=== PATIENT | male | born 1965 | race Hispanic/Latino ===

== ENCOUNTER 2016-10-01 21:54 | Inpatient (IN) ==
[2016-10-01] MEDS ORDERED: OFIRMEV 1000 MG/ISOTONIC SOLN 1,000 MG/100 ML BOTTLE IV ONE (22:48)
[2016-10-01] MEDS ORDERED: NS 1,000 ML IV ONE (22:49)
[2016-10-01 23:34] LABS: BASO% 0.2 % (0.0-0.8); EOS# 0.05 X1000 (0.0-0.7); HEMATOCRIT 44.9 % (42.0-52.0); HEMOGLOBIN 16.2 g/dL (14.0-18.0); LYMPH# 0.68 X1000 (1.2-3.4); LYMPH% 14.3 % (20.5-51.1); MANUAL DIFF NEEDED? NO; MCH 32.9 PG (27-31); MCHC 36.1 g/dL (33-37); MCV 91.3 FL (81-99); MONO# 0.17 X1000 (0.11-0.59); MONO% 3.6 % (1.7-9.3); MPV 10.7 FL (7.4-10.4); NEUT% 80.9 % (42.2-75.2); PLT 90 X1000 (130-400); RBC 4.92 XMIL (4.7-6.1)
--- NOTE | 2016-10-01 23:35 | Diag Imaging Result Doc PS360 ---
EXAM: ABDOMEN/PELVIS W/O CONTRAST HISTORY: diarrhea, T103 TECHNIQUE: CT abdomen and pelvis without contrast COMPARISON: None. FINDINGS: No calcified gallstones or adjacent inflammation. Normal noncontrasted liver, spleen, and pancreas. Normal adrenal glands. No renal stones. No hydronephrosis. Normal aorta. Normal appendix. No abscess. Mild fluid distended loops of small bowel and distal colon. No free air. The urinary bladder is only mildly distended. The prostate is not enlarged. There is mild to moderate spinal stenosis at L3-4 and L4-5. IMPRESSION: 1.Mild fluid distended loops of small bowel and distal colon believe to be secondary to ileus. 2.No renal stones or hydronephrosis 3.Spinal stenosis at L3-4 and L4-5. Electronically signed by Jason Garland 10/01/2016 11:32 PM
--- NOTE | 2016-10-01 23:36 | Diag Imaging Result Doc PS360 ---
EXAM: CHEST-2 VIEWS HISTORY: fever TECHNIQUE: COMPARISON: 02/17/2015 FINDINGS: The lungs are well expanded. The heart is not enlarged. The vessels are not distended. There are no infiltrates. No pleural effusions. IMPRESSION: No pneumonia. Electronically signed by Jason Garland 10/01/2016 11:34 PM
[2016-10-01 23:44] LABS: INR 1.18; PROTIME 12.5 Seconds (9.2-11.7); PTT 32.7 Seconds (22.0-36.0)
[2016-10-01 23:53] LABS: ALBUMIN 4.2 g/dL (3.5-5.0); CALCIUM 8.5 mg/dL (8.8-10.2); POTASSIUM 3.7 mmol/L (3.5-5.1); TOTAL BILIRUBIN 1.06 mg/dL (0.20-1.00); TOTAL PROTEIN 7.8 g/dL (6.3-8.3)
[2016-10-02] MEDS ORDERED: NS 1,000 ML IV ONE ×2 (00:49→03:10)
[2016-10-02] MEDS ORDERED: TORADOL IV ONE (03:09)
[2016-10-02] MEDS ORDERED: VANCOMYCIN 1 GM/NS 1 GM/250 ML IVPB IV ONE (04:33)
[2016-10-02] MEDS ORDERED: ZOSYN 3.375 GM/NS 3.375 GM/50 ML IVPB IV ONE (04:33)
--- NOTE | 2016-10-02 04:33 | PROVIDER DOCUMENTATION ---
This chart was entered by Koki Fernández Scribe, acting as scribe for Chilango Driver MD. HPI-Fever - General Chief Complaint: Abdominal Pain Stated Complaint: FEVER/D/ACHES Time Seen by Provider: 10/01/16 22:39 Source: patient Allergies/Adverse Reactions: Patient Allergies Allergy/AdvReac Type Severity Reaction Status Date / Time No Known Allergies Allergy Verified 02/17/15 17:16 Home Medications: Home Medication List Medication Instructions Recorded Confirmed Last Taken Type NK [No Home Medications] 10/02/16 10/02/16 Unknown History - History of Present Illness-Fever Nature of Presenting Problem: 51 Y/O M presents to ED with Fever. Fever started 2 days ago and yesterday 4 episodes of Diarrhea. Denies all other symptoms. Fever Severity/Quality: reports: greater than 102 F Onset/Duration: reports: 2 days ago Timing: reports: still present Severity: reports: mild Recent Illness?: reports: none Cognitive Baseline: alert, oriented x3 Associated Symptoms: reports: diarrhea, fever/chills. denies: anxiety, arm pain , back/neck pain, chest pain, constipation, cough, diaphoresis, dizziness, EENT symptoms, fatigue, genitourinary problems, headaches, heartburn, joint pain, loss of appetite, malaise, muscle aches, sinus congestion/drainage, nausea, rash , seizure, shortness of breath, sensory/motor loss, pain with inspiration, swelling/mass in abdomen, syncope, vomiting, weakness, trouble walking Similar Symptoms Previously?: No Recently seen or treated by another doctor?: No Review of Systems - Adult - REVIEW OF SYSTEMS - ADULT Constitutional: reports: fever. denies: chills Eyes: reports: no symptoms reported Ears, Nose, Mouth & Throat: reports: no symptoms reported Cardiovascular: denies: chest pain Respiratory: denies: cough, shortness of breath Gastrointestinal: reports: diarrhea. denies: abdominal pain, frequent heartburn , nausea, vomiting Genitourinary: reports: no symptoms reported Musculoskeletal: reports: no symptoms reported Integumentary: reports: no symptoms reported Neurological: reports: no symptoms reported Psychiatric: reports: no symptoms reported Endocrine: reports: no symptoms reported Hematologic/Lymphatic: reports: no symptoms reported Allergic/Immunologic: reports: no symptoms reported All Other Systems: Reviewed and Negative Past History - Adult - PAST MEDICAL HISTORY-ADULT Review of Records: reports: Old Records Reviewed, Nursing Assessment Review, Medications Reviewed, Social history reviewed & non-contributory. Major Childhood Illnesses: reports: denies history Cardiovascular: reports: denies history Respiratory: reports: denies history Gastrointestinal: reports: denies history Obstetrical/Gynecological: reports: denies history Genitourinary: reports: denies history Musculoskeletal: reports: denies history Neurological: reports: denies history Endocrine/Immune: reports: denies history Other Conditions: reports: denies history - FAMILY HISTORY Family History: reviewed, not pertinent Physical Exam-General - PHYSICAL EXAM-ADULT Initial Vital Signs Reviewed: Yes - CONSTITUTIONAL General Appearance: appears well, alert, no apparent distress - EYES Eyes: pink conjunctivae - HEAD, EARS, NOSE, MOUTH & THROAT HENMT: moist mucous membranes, normal ENT inspection, TMs normal - NECK Neck: full range of motion, supple, normal inspection - RESPIRATORY Respiratory: lungs clear, normal breath sounds - CARDIOVASCULAR Cardiovascular: regular rate, rhythm, no edema, no gallop, no JVD, no murmur - GASTROINTESTINAL (ABDOMEN) Abdominal Exam: non tender, soft - LYMPHATIC Lymphatic: no adenopathy - MUSCULOSKELETAL Back Exam: no CVA tenderness, no vertebral tenderness Extremity: non-tender - SKIN Integumentary: normal turgor, warm/dry - PSYCHIATRIC Psych/Mental Status: normal mood/affect, normal thought content, normal thought process, oriented x 3 Progress - PLAN OF CARE/RESULTS Progress/Plan/Lab Results: Vital Signs - 8 hr 10/01/16 22:06 10/02/16 01:04 10/02/16 03:07 Temperature 103 F H 98.7 F 100.7 F H Pulse Rate 138 H 86 Respiratory Rate 22 18 Blood Pressure 130/77 93/53 O2 Sat by Pulse Oximetry 96 96 Laboratory Results - last 24 hr 10/01/16 10/01/16 10/01/16 23:20 23:20 23:20 WBC 4.77 L RBC 4.92 Hgb 16.2 Hct 44.9 MCV 91.3 MCH 32.9 H MCHC 36.1 RDW Std Deviation 12.5 Plt Count 90 L MPV 10.7 H Immature Gran % (Auto) 0.0 Neut % (Auto) 80.9 H Lymph % (Auto) 14.3 L [place] % (Auto) 3.6 Eos % (Auto) 1.0 Baso % (Auto) 0.2 Immature Gran # (Auto) 0.00 Neut # (Auto) 3.86 Lymph # (Auto) 0.68 L [place] # (Auto) 0.17 Eos # (Auto) 0.05 Baso # (Auto) 0.01 PT INR PTT (Actin FS) Sodium 133 L Potassium 3.7 Chloride 93 L Carbon Dioxide 24 L Anion Gap 16 BUN 26 H Creatinine 1.3 H Estimated GFR/1.73 m2 58 BUN/Creatinine Ratio 20 Glucose 249 H Calculated Osmolality 279 Calcium 8.5 L Total Bilirubin 1.06 H AST 25 ALT 18 Alkaline Phosphatase 57 Creatine Kinase 75 Troponin T Total Protein 7.8 Albumin 4.2 Globulin 3.6 Albumin/Globulin Ratio 1.2 Plasma Lactate 1.8 10/01/16 10/01/16 23:20 23:20 WBC RBC Hgb Hct MCV MCH MCHC RDW Std Deviation Plt Count MPV Immature Gran % (Auto) Neut % (Auto) Lymph % (Auto) [place] % (Auto) Eos % (Auto) Baso % (Auto) Immature Gran # (Auto) Neut # (Auto) Lymph # (Auto) [place] # (Auto) Eos # (Auto) Baso # (Auto) PT 12.5 H INR 1.18 PTT (Actin FS) 32.7 Sodium Potassium Chloride Carbon Dioxide Anion Gap BUN Creatinine Estimated GFR/1.73 m2 BUN/Creatinine Ratio Glucose Calculated Osmolality Calcium Total Bilirubin AST ALT Alkaline Phosphatase Creatine Kinase Troponin T < 0.010 Total Protein Albumin Globulin Albumin/Globulin Ratio Plasma Lactate Orders Category Date Time Status Cardiac Monitoring DIRECTED Care 10/01/16 22:47 Active IV Insertion ORDERED Care 10/01/16 22:47 Completed Notify MD of + Sepsis Screen NOW Care 10/01/16 22:47 Active ABDOMEN/PELVIS W/O CONTRAST [CT] Stat Exams 10/01/16 22:48 Completed CHEST-2 VIEWS [RAD] Stat Exams 10/01/16 22:47 Completed BLOOD CULTURE [BLDCUL] Stat Lab 10/01/16 23:12 Results CBC WITH DIFF [HEME] Stat Lab 10/01/16 23:20 Completed CK PROFILE [SP CHEM] Stat Lab 10/01/16 23:20 Completed COMPREHENSIVE METABOLIC PANEL [CHEM] Stat Lab 10/01/16 23:20 Completed LACTATE, PLASMA [CHEM] Stat Lab 10/01/16 23:20 Completed PROTIME WITH INR [COAG] Stat Lab 10/01/16 23:20 Completed PTT [COAG] Stat Lab 10/01/16 23:20 Completed TROPONIN T Stat Lab 10/01/16 23:20 Completed URINALYSIS W/POSS RFLX CULT-1 [URINALYSIS] Stat Lab 10/01/16 22:47 Uncollected 0.9% Sodium Chloride Inj [Ns] 1,000 ml Med 10/01/16 22:49 Discontinued IV 999 mls/hr 0.9% Sodium Chloride Inj [Ns] 1,000 ml Med 10/02/16 00:49 Discontinued IV 999 mls/hr 0.9% Sodium Chloride Inj [Ns] 1,000 ml Med 10/02/16 03:10 Discontinued IV 999 mls/hr Acetaminophen [Ofirmev 1000 mg/Isotonic Soln] Med 10/01/16 22:48 Discontinued 1,000 mg in 100 ml IV NOW Ketorolac [Toradol] Med 10/02/16 03:09 Discontinued 30 mg IV NOW ONE Result Diagrams: 10/01/16 23:20 10/01/16 23:20 - REASSESSMENT Reassessment #1 Time Reassessed: 02:15 (pt has been sleeping and when awakened states he does feel like he cant give any urine) Reassessment #2 Time Reassessed: 04:32 (pt has had 3000cc of NS and bladderscan shows no urine, disc w/Dr Perez, will admit and start antibiotics) Status: unchanged - CT/MRI 1 CT Study: Abdomen (possible ileus o/w normal) Departure - Departure Date of Disposition Decision: 10/02/16 Time of Disposition Decision: 04:31 DIAGNOSIS: Febrile illness Disposition: ADMITTED INPATIENT 09 Certified Medical Emergency: Emergent Condition: Good Referrals and Follow-Ups: None,PCP [Primary Care Provider] - - Critical Care Note This patient required my direct & personal management of CC.: No This chart was documented by the indicated scribe, (Koki Fernández Scribe) and accurately reflects the services I performed and decisions made by me, Chilango Driver MD, as attested by the provider's signature.
--- NOTE | 2016-10-02 05:28 | HISTORY AND PHYSICAL ---
PRIMARY CARE PHYSICIAN: None. CHIEF COMPLAINT: Fever and general weakness. HISTORY OF PRESENT ILLNESS: This is a 51-year-old, male with a past medical history of diabetes mellitus who presented to the emergency department complaining of fever and generalized weakness. The patient reports that he was having diarrhea for the last 4 days and initially he had an episode of fever but he did not measure temperature. He denied any abdominal pain. He denied any cough. He was approximately having 4-5 times bowel movements per day. Today, he started having fever and he became very tired today. He was feeling weak so he presented to the emergency department. Here, he was given a lot of fluids. He was found to be febrile and as per ER doctor, apparently patient did not make any urine while he was here but patient reports that he went to the bathroom maybe twice. Labs also showed [place] but we do not have any labs to compare. The patient is going to be admitted to the hospital for fever and diarrhea, and acute kidney injury. PAST MEDICAL HISTORY: Diabetes, on oral antidiabetic agents. PAST SURGICAL HISTORY: None. ALLERGIES: No known drug allergies. FAMILY HISTORY: Noncontributory. SOCIAL HISTORY: He drinks alcohol socially. He denies smoking tobacco. He denies using any drugs. REVIEW OF SYSTEMS: Eleven systems were reviewed and all symptoms were related to H and P. PHYSICAL EXAMINATION: GENERAL: This is a 51-year-old, male lying in bed, in no acute distress. HEENT: Head is normocephalic and atraumatic. Anicteric sclerae and pale conjunctivae. Mucous membranes moist. NECK: Supple. No JVD noted. No carotid bruits. No lymphadenopathy. No thyromegaly. CARDIOVASCULAR EXAMINATION: S1, S2 heard. No murmurs, gallops, or rubs. Regular rate and rhythm. RESPIRATORY EXAMINATION: Clear bilaterally to auscultation. No work of breathing or using accessory muscles. ABDOMEN: Soft, nontender to palpation. Bowel sounds present. No organomegaly. EXTREMITIES: No clubbing, cyanosis, or edema. Peripheral pulses present in both legs. NEUROLOGICAL EXAMINATION: Patient is alert and oriented x3. Moves 4 extremities VITAL SIGNS: Temperature 103 degrees, heart rate 138, respiratory rate 22, blood pressure 130/77, O2 saturation 96% on room air. LABORATORY DATA: The CBC is unremarkable. The BMP shows creatinine 1.3, BUN 26, glucose 249. ASSESSMENT/PLAN: 1. Acute kidney injury. 2. Dehydration. 3. Diabetes mellitus type 2. 4. Fever. PLAN: 1. The patient is going to be admitted to the hospital for further evaluation and treatment for 4 days of diarrhea that may have caused this acute kidney injury. The CT of the abdomen just shows mild fluid distended loops of small bowel in the distal colon, believed to be secondary to ileus but no obstruction, no renal stones and spinal stenosis. We are going to provide aggressive fluid resuscitation and pain medication if needed. For control of diabetes, we are going to use insulin Humalog sliding scale. We are going to hold all his oral diabetic medication. We will repeat labs; in this case, CBC and BMP daily. 2. We are going to order stool studies for C. difficile and stool culture, and WBC on stools. We are going to start empirically on Zosyn for possible colitis or gastroenteritis. Blood cultures have been drawn. We will follow results. 1. Further recommendations to follow according to the clinical situation of the patient. cc: Merlin Thorne MD
[2016-10-02 06:04] LABS: HEMOGLOBIN A1C 7.2 % (4.8-6.0)
[2016-10-02 06:37] LABS: HDL 57 mg/dL (35-55); LDL 88 mg/dL; TRIGLYCERIDES 84 mg/dL (39-160); VLDL 17 mg/dL
[2016-10-02 07:36] LABS: URINE CULTURE NEEDED? NO; URINE SOURCE CLEAN CATCH
[2016-10-02 07:41] LABS: BILIRUBIN URINE NEGATIVE (NEGATIVE); BLOOD URINE TRACE (NEGATIVE); COLOR YELLOW; GLUCOSE URINE 1000 mg/dL (NEGATIVE); LEUKOCYTES URINE NEGATIVE (NEGATIVE); NITRITE URINE NEGATIVE (NEGATIVE); PROTEIN URINE 100 mg/dL (NEGATIVE); SP GRAVITY URINE 1.034; TURBIDITY URINE CLEAR (CLEAR); URINE MICRO REVIEW NEEDED? YES; UROBILINOGEN URINE NORMAL (NORMAL)
[2016-10-02 07:43] LABS: UR EPITHELIAL CELLS <10 /HPF (<10); URINE BACTERIA NEGATIVE /HPF; URINE RBC <10 /HPF (<10); URINE WBC <10 /HPF (<10)
[2016-10-02] MEDS ORDERED: ZOFRAN IV PRN (07:43)
[2016-10-02] MEDS: NS 1,000 ML IV SCH ×3 (08:10→20:16)
[2016-10-02] MEDS: LOVENOX SUBQ SCH (08:13)
[2016-10-02] MEDS: SODIUM CHLORIDE 0.9% INJ SCH (08:13)
[2016-10-02] MEDS: PROTONIX IV SCH (08:13)
[2016-10-02] MEDS: HUMALOG SUBQ SCH ×4 (08:18→20:16)
[2016-10-02 09:09] LABS: AGAP 10; BUN 24 mg/dL (8-22); CALCIUM 7.5 mg/dL (8.8-10.2); CHLORIDE 100 mmol/L (98-107); COSMO 273; POTASSIUM 3.5 mmol/L (3.5-5.1); SODIUM 132 mmol/L (136-145); TCO2 22 mmol/L (25-35)
[2016-10-02 09:18] LABS: EOS# 0.01 X1000 (0.0-0.7); EOS% 0.5 % (0.0-10.0); HEMATOCRIT 39.6 % (42.0-52.0); HEMOGLOBIN 14.2 g/dL (14.0-18.0); LYMPH# 0.34 X1000 (1.2-3.4); LYMPH% 17.5 % (20.5-51.1); MANUAL DIFF NEEDED? YES; MCHC 35.9 g/dL (33-37); MCV 92.1 FL (81-99); MONO% 5.2 % (1.7-9.3); MPV 10.5 FL (7.4-10.4); NEUT% 76.8 % (42.2-75.2); PLT 66 X1000 (130-400)
[2016-10-02 09:26] LABS: LYMPHS 18 % (21-51); MONO 17 % (1-9)
[2016-10-02] MEDS: ZOSYN 3.375 GM/NS 3.375 GM/50 ML IVPB IV SCH ×3 (11:52→22:00)
[2016-10-02] MEDS: TYLENOL PO PRN ×3 (12:46→21:59)
--- NOTE | 2016-10-02 14:23 | PROGRESS NOTE ---
DATE: 10/02/2016 Today Mr. Collins referred to be doing fine. According to Mr. Collins he woke up very well yesterday. He went to work. At work he ate lasagna which normally he does eat but he was hungry so he took lasagna for lunch. He worked afterwards and he was doing fine. Went home at about 5 and then he started feeling the whole body getting weak and he started having diarrhea. Had multiple complex bowel movements yesterday. He felt extremely weak so his friend decided to bring him to the emergency department. Upon presentation, patient was evaluated. At 1 point he was hypotensive with a blood pressure of 93/53, so he was admitted for further medical care. OBJECTIVE: Vital signs: Blood pressure is now 135/62, pulse of 110, respiration is 18, temperature is 103.3 degrees. General Exam: Mr. Collins is a 51-year-old male. He is in bed, not seemingly distressed. He refers to be feeling better today. HEENT: Mucosa is pink and moist. Anicteric. Acyanotic. Neck: Supple. Chest: Good air entry bilaterally. No crepitations. No rhonchi. Cardiovascular: Regular rate and rhythm. No murmurs, no rubs. No gallops. Abdomen: Soft. Bowel sounds are hyperactive. There is no hepatosplenomegaly. Extremities: No pedal edema. 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 There is no focal neurological deficit. LABORATORY DATA: WBC is down to 1.94, hemoglobin is 14.3, platelet count of 66,000. Chemistries reviewed. Sodium is 132, potassium is 3.5, chloride is 100, bicarb is 22, creatinine is down to 1.90. DIAGNOSTIC STUDIES: A CT scan of the abdomen and pelvis which was done yesterday without contrast shows mild fluid distended loops of small bowel and distal colon believed to be secondary to ileus. ASSESSMENT: 1. Severe sepsis secondary to gastroenteritis. 2. Gastroenteritis etiology is apparently not clear. We presume that the food that he ate at lunch (the lasagna) is the culprit that induced him to have the diarrhea. 3. Acute kidney injury. Likely from dehydration. 4. History of diabetes mellitus on oral hypoglycemic agents at home. We will continue with sliding scale over here for now. 5. Thrombocytopenia. Platelet count has remarkably reduced but just as well as the WBC. I think this is probably dilutional but the acute infectious process could also be contributing immensely to that. We are going to keep a very close eye on the numbers. cc: Anand Mckeon MD
[2016-10-02] MEDS ORDERED: MOTRIN PO ONE (20:00)
[2016-10-03] MEDS: ZOSYN 3.375 GM/NS 3.375 GM/50 ML IVPB IV SCH ×4 (04:03→23:37)
[2016-10-03] MEDS: NS 1,000 ML IV SCH ×4 (04:03→23:38)
[2016-10-03 05:30] LABS: BASO% 0.9 % (0.0-0.8); EOS# 0.01 X1000 (0.0-0.7); EOS% 0.4 % (0.0-10.0); HEMATOCRIT 37.2 % (42.0-52.0); HEMOGLOBIN 13.4 g/dL (14.0-18.0); LYMPH# 0.42 X1000 (1.2-3.4); LYMPH% 18.5 % (20.5-51.1); MANUAL DIFF NEEDED? YES; MCH 32.6 PG (27-31); MCV 90.5 FL (81-99); MONO# 0.16 X1000 (0.11-0.59); MPV 10.7 FL (7.4-10.4); NEUT% 73.2 % (42.2-75.2); PLT 58 X1000 (130-400); RBC 4.11 XMIL (4.7-6.1)
[2016-10-03 05:40] LABS: AGAP 11; BUN 15 mg/dL (8-22); CALCIUM 7.6 mg/dL (8.8-10.2); CHLORIDE 102 mmol/L (98-107); COSMO 271; POTASSIUM 3.1 mmol/L (3.5-5.1); SODIUM 134 mmol/L (136-145); TCO2 21 mmol/L (25-35)
[2016-10-03] MEDS ORDERED: KLOR-CON PO ONE (06:13)
[2016-10-03] MEDS: HUMALOG SUBQ SCH ×4 (06:19→21:07)
[2016-10-03 06:56] LABS: LYMPHS 11 % (21-51)
[2016-10-03] MEDS: SODIUM CHLORIDE 0.9% INJ SCH (08:27)
[2016-10-03] MEDS: PROTONIX IV SCH (08:27)
[2016-10-03] MEDS: LOVENOX SUBQ SCH (08:27)
[2016-10-03] MEDS: TYLENOL PO PRN (14:13)
--- NOTE | 2016-10-03 16:15 | PROGRESS NOTE ---
DATE: 10/03/2016 SUBJECTIVE: Today Mr. Collins referred to be doing a little better but he continues to have frequent diarrhea. He said he had a total of about 6 today. Patient had a T-max of 103.3 yesterday at about 12 midday. OBJECTIVE: General: Mr. Collins is a 51-year-old, male. He is in bed, in no distress. HEENT: Mucosa is pink and moist. Anicteric. Acyanotic. Neck: Supple. Chest : Good air entry bilaterally. No crepitations. No rhonchi. Cardiovascular: Regular rate and rhythm. Abdomen: Soft, mildly tender generally but no rebound. Bowel sounds are hypoactive. Extremities: No pedal edema. Central Nervous System: Patient is awake, alert and oriented x4. There is no focal neurological deficit. LABORATORY DATA: WBC is 2.27, hemoglobin is 13.4, platelet count is 58,000. Chemistry is reviewed. Sodium is 134, potassium is 3.1, chloride is 102, bicarbonate is 21. Blood cultures are growing 2/2 gram-negative rods. ASSESSMENT: 1. Gram-negative whitney bacteremia. 2. Severe sepsis secondary to gastroenteritis. 3. Acute kidney injury likely from dehydration, this is resolved. 4. History of diabetes mellitus on oral hypoglycemic agent. 5. Thrombocytopenia likely due to underlying sepsis. We will, however, work him up for possible disseminated intravascular coagulation and make sure we avoid any medication that would depress the bone marrow. 6. Gastroenteritis continues to worsen. Once we know the agent for the gram- negative whitney in the bacteria we probably might be able to do changes to the antibiotics since the Zosyn which the patient is currently on can significantly also have diarrhea side effects. cc: Anand Mckeon MD [facility]
[2016-10-03] MEDS ORDERED: MOTRIN PO ONE (16:26)
[2016-10-04 05:40] LABS: HEMOGLOBIN 12.5 g/dL (14.0-18.0); LYMPH# 0.35 X1000 (1.2-3.4); LYMPH% 17.7 % (20.5-51.1); MANUAL DIFF NEEDED? YES; MCH 32.6 PG (27-31); MCHC 36.8 g/dL (33-37); MCV 88.8 FL (81-99); MONO# 0.23 X1000 (0.11-0.59); MONO% 11.6 % (1.7-9.3); MPV 10.7 FL (7.4-10.4); NEUT% 69.7 % (42.2-75.2); PLT 62 X1000 (130-400); RBC 3.83 XMIL (4.7-6.1)
[2016-10-04] MEDS: ZOSYN 3.375 GM/NS 3.375 GM/50 ML IVPB IV SCH ×2 (05:47→11:41)
[2016-10-04 05:55] LABS: AGAP 11; BUN 12 mg/dL (8-22); CHLORIDE 102 mmol/L (98-107); COSMO 271; SODIUM 134 mmol/L (136-145); TCO2 21 mmol/L (25-35)
[2016-10-04 06:04] LABS: BANDS 10 % (0-1); LYMPHS 16 % (21-51); MONO 14 % (1-9)
[2016-10-04] MEDS: HUMALOG SUBQ SCH ×4 (06:09→20:13)
[2016-10-04] MEDS ORDERED: KLOR-CON PO ONE (06:17)
[2016-10-04] MEDS ORDERED: MAGNESIUM SULFATE 2 GM/S.W.I. 2 GM/50 ML IVPB IV ONE (06:18)
[2016-10-04] MEDS: NS 1,000 ML IV SCH ×3 (06:39→20:12)
[2016-10-04] MEDS: POTASSIUM CHLORIDE 20 MEQ/SWI 20 MEQ/100 ML IVPB IV SCH ×2 (07:36→09:33)
[2016-10-04] MEDS: LOVENOX SUBQ SCH (08:35)
[2016-10-04] MEDS: SODIUM CHLORIDE 0.9% INJ SCH (08:35)
[2016-10-04] MEDS: PROTONIX IV SCH (08:35)
[2016-10-04] MEDS ORDERED: ROCEPHIN 2 GM/NS 2 GM/50 ML IVPB IV ONE (11:51)
--- NOTE | 2016-10-04 14:23 | PROGRESS NOTE ---
DATE: 10/04/2016 SUBJECTIVE: Today, Mr. Collins referred to be doing a little better, but continues to have remarkable diarrhea. He says he had about 12 in total yesterday. OBJECTIVE: Vital signs: Blood pressure is 138/63, pulse of 73, respirations 22 , temperature 98.6. General: Mr. Collins is a 51-year-old, male. He is in bed, not seemingly distressed. HEENT: Mucosa is pink and moist. Anicteric. Acyanotic. Neck: Supple. Chest: Clear. Cardiovascular: Regular rate and rhythm. There are no murmurs, no rubs , no gallops. Abdomen: Soft, mildly tender generally, but no rebound. Bowel sounds are slightly hypoactive. Extremities: No pedal edema. 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 There are no focal neurological deficits. LABORATORY DATA: WBC is 1.98, hemoglobin is 12.5, platelet count of 62. There are 10% of bands on peripheral smear. Sodium is 134, potassium is 3.0, glucose is 146. So far, the blood culture is still positive 2/. I called the lab and I was told that it seems it is growing salmonella, both in the blood and in the stool. ASSESSMENT: 1. Gram-negative whitney bacteremia. There is a suspicion that this could be salmonellosis. Will therefore change the antibiotic to ceftriaxone and will consult Infectious disease. 2. Severe sepsis, secondary to gastroenteritis. 3. Gastroenteritis likely due to Salmonella infection. We will change the antibiotics and will consult ID. We also are awaiting the official and final culture report. 4. Acute kidney injury from dehydration, resolved. 5. Diabetes mellitus, stable. 6. Thrombocytopenia, likely due to underlying sepsis, improving. So in general today, Mr. Collins continued to have remarkable bowel movements, pure diarrhea. We have a preliminary report which states patient is growing both salmonella in the blood and in the stool, so will switch his antibiotics to ceftriaxone and will consult ID. Will place the patient on contact and enteric precautions. cc: MD JEANNE Toney
[2016-10-05] MEDS: NS 1,000 ML IV SCH ×3 (04:04→18:08)
[2016-10-05 06:00] LABS: BASO% 4.3 % (0.0-0.8); EOS# 0.01 X1000 (0.0-0.7); EOS% 0.4 % (0.0-10.0); LYMPH# 0.76 X1000 (1.2-3.4); LYMPH% 32.9 % (20.5-51.1); MANUAL DIFF NEEDED? YES; MCH 33.1 PG (27-31); MCHC 37.5 g/dL (33-37); MCV 88.2 FL (81-99); MONO# 0.37 X1000 (0.11-0.59); MPV 10.4 FL (7.4-10.4); NEUT% 46.4 % (42.2-75.2); PLT 66 X1000 (130-400); RBC 3.63 XMIL (4.7-6.1)
[2016-10-05 06:23] LABS: AGAP 14; BUN 11 mg/dL (8-22); CALCIUM 7.7 mg/dL (8.8-10.2); CHLORIDE 100 mmol/L (98-107); COSMO 276; POTASSIUM 2.9 mmol/L (3.5-5.1); SODIUM 136 mmol/L (136-145); TCO2 22 mmol/L (25-35)
[2016-10-05] MEDS: HUMALOG SUBQ SCH ×4 (06:32→23:02)
[2016-10-05 06:33] LABS: BANDS 2 % (0-1); LYMPHS 28 % (21-51); MONO 12 % (1-9)
[2016-10-05] MEDS: LOVENOX SUBQ SCH (08:22)
[2016-10-05] MEDS: PROTONIX IV SCH (08:22)
[2016-10-05] MEDS: SODIUM CHLORIDE 0.9% INJ SCH (08:22)
[2016-10-05] MEDS ORDERED: MAGNESIUM SULFATE 2 GM/S.W.I. 2 GM/50 ML IVPB IV ONE (08:41)
[2016-10-05] MEDS: POTASSIUM CHLORIDE 20 MEQ/SWI 20 MEQ/100 ML IVPB IV SCH ×2 (09:32→11:28)
--- NOTE | 2016-10-05 11:02 | PROGRESS NOTE ---
DATE: 10/05/2016 SUBJECTIVE: Today Mr. Collins refers to be doing a whole lot better. He said he is not going as much to the bathroom as he did yesterday. The whole of this morning he has not had any bowel movement. OBJECTIVE: Vital signs: Blood pressure is 118/57, pulse of 66, respirations 16 , temperature 97.7 degrees. Patient has not had any fever in the last 2 days. General: Mr. Collins is a 51-year- old male. He is in bed, not seemingly distressed. HEENT: Mucosa is pink, slightly dry. Anicteric. Acyanotic. Neck: Supple. Chest: Clear. Cardiovascular: Regular rate and rhythm. There are no murmurs, no rubs, no gallops. Abdomen: Soft, mildly tender. Bowel sounds are slightly hyperactive. Extremities: No pedal edema. 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 There is no focal neurological deficit. LABORATORY DATA: WBC 2.31, hemoglobin is 12.0, platelet count is 66,000. There is only 2% of bands on periphery smear chemistry is reviewed. Potassium is 2.9. Rest of chemistry is unremarkable. Blood culture has come back. The stool culture is positive for salmonella group which is pansensitive. The blood culture is also positive for salmonella group, also pansensitive. ASSESSMENT: 1. Salmonella bacteremia. 2.Salmonella gastroenteritis. 3. Sepsis secondary to Salmonella infection. 4. Acute kidney injury from dehydration, resolved. 5. Diabetes mellitus, stable. 6. Thrombocytopenia with leukopenia, likely due to the underlying sepsis. This is slightly improving. PLAN: In general, Mr. Collins seems to be doing a lot better today. He is having less bowel movements. He is tolerating his diet. He has been afebrile. He is currently on ceftriaxone; today is day 1 of therapy. He was initially started on Zosyn which was discontinued. Patient is pending to be evaluated by ID. Hopeful within a day or 2 we might be able to discharge the patient. The patient continues to be in contact precaution and the lab will notify the health department about the salmonella infection. cc: MD JEANNE Toney
[2016-10-05] MEDS: ROCEPHIN 2 GM/NS 2 GM/50 ML IVPB IV SCH (16:22)
--- NOTE | 2016-10-05 16:27 | CONSULTATION ---
DATE OF CONSULTATION: 10/05/2016 CONCLUSION: A 51-year-old male is admitted to the hospital with Salmonella bacteremia and diarrhea. The patient has developed pancytopenia. RECOMMENDATIONS: I agree with treating the patient with antibiotics because he has an associated bacteremia. He does have pancytopenia which could be due to a salmonella infection. Possibly it may be due to Rocephin. I have switched the patient from Rocephin to Levaquin just in case the Rocephin is responsible for the patient's pancytopenia. DISCUSSION: The patient barely speaks any Irish and no family member was present. According to the chart, the patient came in and had diarrhea. Blood and urine cultures are positive for salmonella. The organism is susceptible to all the drugs tested, which includes ampicillin, ceftazidime, ceftriaxone, Levaquin and Septra. PAST MEDICAL HISTORY: Diabetic. PAST SURGICAL HISTORY: None. ALLERGIES: No known drug allergies. FAMILY HISTORY: Said to be noncontributory. 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 He drinks alcohol. He denies smoking cigarettes and he denies abusing drugs. REVIEW OF SYSTEMS: I was unable to obtain a review of systems. LABORATORY STUDIES: Thus far show a CBC with a white count of 2310, hemoglobin is 12. platelet count is 66,000. Creatinine 0.7. GFR is greater than 60. The patient's blood and stool both grew salmonella. Repeat blood cultures were drawn today and their results are pending. PHYSICAL EXAMINATION: Vital Signs: Temperature is 98.2 degrees, pulse is 70, respirations 20, blood pressure 118/49. Patient is 5 feet 5 inches tall. He weighs 136 pounds. General: This is a somewhat ill-appearing, middle-aged male. He is in no acute distress. Head, eyes, ears, nose, and Throat: No drainage noted from the nose or ears. Neck: No stiffness. Lungs: Clear to auscultation. Cardiovascular: Heart rate is regular. Abdomen: Flanks are soft and nontender. ASSESSMENT AND PLAN: The patient as mentioned above has had salmonella bacteremia and diarrhea and because of this, he will need at least 2 weeks of an antibiotic. The Health Department routinely gets all cultures positive for salmonella and they will be seeing the patient to track down where he got salmonella, although it would seem in the chicken processing plant would be the most likely place. cc: Moses Crystal MD MTDD
[2016-10-06] MEDS: NS 1,000 ML IV SCH ×4 (00:10→21:58)
[2016-10-06] MEDS: HUMALOG SUBQ SCH ×4 (06:17→22:18)
[2016-10-06] MEDS: SODIUM CHLORIDE 0.9% INJ SCH (09:43)
[2016-10-06] MEDS: LOVENOX SUBQ SCH (09:44)
[2016-10-06] MEDS: PROTONIX IV SCH (09:44)
[2016-10-06 11:10] LABS: BASO% 1.7 % (0.0-0.8); EOS# 0.02 X1000 (0.0-0.7); EOS% 0.7 % (0.0-10.0); HEMOGLOBIN 11.7 g/dL (14.0-18.0); LYMPH# 0.88 X1000 (1.2-3.4); MANUAL DIFF NEEDED? YES; MCH 32.4 PG (27-31); MCHC 36.6 g/dL (33-37); MCV 88.6 FL (81-99); MONO# 0.65 X1000 (0.11-0.59); MONO% 22.2 % (1.7-9.3); NEUT% 45.4 % (42.2-75.2); PLT 83 X1000 (130-400); RBC 3.61 XMIL (4.7-6.1)
[2016-10-06 11:24] LABS: AGAP 13; ALBUMIN 2.7 g/dL (3.5-5.0); ALKALINE PHOSPHATASE 43 U/L (32-122); BUN 8 mg/dL (8-22); CALCIUM 7.8 mg/dL (8.8-10.2); CHLORIDE 102 mmol/L (98-107); COSMO 276; GOT 144 U/L (10-34); GPT 93 U/L (10-44); POTASSIUM 2.7 mmol/L (3.5-5.1); SODIUM 138 mmol/L (136-145); TCO2 23 mmol/L (25-35); TOTAL PROTEIN 5.3 g/dL (6.3-8.3)
[2016-10-06 11:53] LABS: BANDS 2 % (0-1); EOS 1 % (1-10); LYMPHS 24 % (21-51); MONO 15 % (1-9)
[2016-10-06 11:54] LABS: LARGE PLATELETS 1+
[2016-10-06] MEDS: ROCEPHIN 2 GM/NS 2 GM/50 ML IVPB IV SCH (11:54)
[2016-10-06] MEDS ORDERED: MAGNESIUM SULFATE 2 GM/S.W.I. 2 GM/50 ML IVPB IV ONE (13:36)
[2016-10-06] MEDS ORDERED: KLOR-CON PO ONE (13:36)
--- NOTE | 2016-10-06 16:45 | PROGRESS NOTE ---
DATE: 10/06/2016 SUBJECTIVE: Today Mr. Collins referred to be doing a lot better. He has had 3 bowel movements in total. OBJECTIVE: Vital Signs: Stable. Blood pressure is 129/75, pulse 70, respirations 20, temperature 98 degrees. General: Mr. Collins is a 51-year-old male. He is in bed, not seemingly distressed. HEENT: Mucosa is pink and moist. Anicteric. Acyanotic. Neck: Supple. Chest: Clear. Cardiovascular: Regular rate and rhythm. There is no murmurs. No rubs, no gallops. Abdomen: Soft, nontender. Bowel sounds are present. Slightly hyperactive. Extremities: No pedal edema. BROADCAST OPERATIONS TECHNICIAN: Patient is awake and alert and oriented x4. There is no focal neurological deficit. LABORATORY DATA: WBC is 2.93, hemoglobin is 11.7, platelet count of 83,000. There is only 2% bands on the peripheral smear. Chemistry is reviewed. Sodium is up, potassium is 2.7. Rest of chemistry is unremarkable. AST has gone up slightly to 144 and ALT to 93. ASSESSMENT: 1. Salmonella bacteremia. 2. Salmonella gastroenteritis. 3. Sepsis secondary to Salmonella infection. 4. Acute kidney injury from dehydration is resolved. 5. Diabetes mellitus with presenting A1c of 7.2. Stable. 6. Pancytopenia likely secondary to underlying sepsis. This is slightly improving. 7. Transaminitis. Etiology is not clear. I think this started here in the hospital. We will going to repeat this and avoid any hepatotoxic medications. Patient has been seen by ID. Will continue with ceftriaxone for now. Change to levofloxacin when patient is ready to be discharged home. cc: Anand Mckeon MD [facility]
[2016-10-07] MEDS: NS 1,000 ML IV SCH (04:23)
[2016-10-07] MEDS: HUMALOG SUBQ SCH ×2 (06:24→12:05)
[2016-10-07 06:45] LABS: BASO% 0.5 % (0.0-0.8); EOS# 0.08 X1000 (0.0-0.7); EOS% 2.1 % (0.0-10.0); HEMATOCRIT 29.6 % (42.0-52.0); HEMOGLOBIN 10.9 g/dL (14.0-18.0); LYMPH% 34.5 % (20.5-51.1); MANUAL DIFF NEEDED? YES; MCH 32.5 PG (27-31); MCHC 36.8 g/dL (33-37); MCV 88.4 FL (81-99); MONO# 0.52 X1000 (0.11-0.59); MONO% 13.8 % (1.7-9.3); MPV 9.9 FL (7.4-10.4); NEUT% 49.1 % (42.2-75.2); PLT 106 X1000 (130-400); RBC 3.35 XMIL (4.7-6.1)
[2016-10-07 07:04] LABS: AGAP 10; ALBUMIN 2.4 g/dL (3.5-5.0); ALKALINE PHOSPHATASE 46 U/L (32-122); BUN 7 mg/dL (8-22); CALCIUM 7.3 mg/dL (8.8-10.2); CHLORIDE 103 mmol/L (98-107); COSMO 279; GOT 92 U/L (10-34); GPT 81 U/L (10-44); SODIUM 139 mmol/L (136-145); TCO2 26 mmol/L (25-35); TOTAL PROTEIN 4.9 g/dL (6.3-8.3)
[2016-10-07 08:16] LABS: EOS 2 % (1-10); LYMPHS 30 % (21-51); MONO 12 % (1-9)
[2016-10-07] MEDS ORDERED: KLOR-CON PO ONE (08:20)
[2016-10-07] MEDS ORDERED: MAGNESIUM SULFATE 2 GM/S.W.I. 2 GM/50 ML IVPB IV ONE (08:21)
[2016-10-07 08:32] VITALS: BP 113/62
--- NOTE | 2016-10-07 08:45 | PROGRESS NOTE ---
DATE: 10/07/2016 PRESENT ILLNESS: The patient has Salmonella bacteremia and enteritis. MEDICATIONS: The patient is receiving Rocephin. PHYSICAL EXAMINATION: Vital Signs: Temperature is 98.9 degrees, pulse 62, respirations 17, blood pressure 132/59. Generally, this is a fairly healthy-appearing middle-aged male. He is in no acute distress. Lungs clear to auscultation. Cardiovascular: Regular heart rate. Abdomen soft and nontender. Neurologic: Patient is awake. He can move his extremities. LABORATORY DATA AND X-RAY: CBC today shows a white count of 3770, hemoglobin 10.9, and platelet count 106,000. Creatinine is 0.6. GFR is greater than 60. Liver function studies are improving. Both the blood and the stool are growing Salmonella. ASSESSMENT AND PLAN: Patient has Salmonella bacteremia and enteritis. The plan is to send him home on Levaquin 500 mg p.o. daily for 2 weeks, and I have requested that the patient see me in the office in 3 weeks. The fact the patient has Salmonella [facility] and has been relayed also to the [facility]. 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 cc: Moses Crystal MD
[2016-10-07] MEDS: LOVENOX SUBQ SCH (10:18)
[2016-10-07] MEDS: SODIUM CHLORIDE 0.9% INJ SCH (12:04)
[2016-10-07] MEDS: PROTONIX IV SCH (12:05)
[2016-10-07] MEDS: ROCEPHIN 2 GM/NS 2 GM/50 ML IVPB IV SCH (12:06)
--- NOTE | 2016-10-07 16:40 | DISCHARGE SUMMARY ---
ADMISSION DATE: 10/02/2016 DISCHARGE DATE: 10/07/2016 CONSULTATIONS: Moses Crystal MD with Infectious Disease. PERTINENT PROCEDURES: Abdomen and pelvis CT showed mild fluid, distended loops of small bowel in the distal colon believed to be secondary to ileus. No renal stones or hydronephrosis. Spinal stenosis at L3-4 and L4-5. DISCHARGE DIAGNOSES: 1. Salmonella bacteremia being treated by Dr. Crystal with Infectious Disease. 2. Acute Salmonella gastroenteritis. 3. Sepsis secondary to salmonella infection resolved. Continue treatment by Dr. Moses Crystal as outpatient. 4. Acute kidney injury secondary to dehydration. Resolved. 5. Diabetes mellitus presenting with A1c of 7.2. Stable. 6. Pancytopenia likely secondary to underlying sepsis. Improving. 7. Transaminitis. Etiology not clear. Slight improvement. HOSPITAL COURSE: Mr. Collins is a 51-year-old, male with a past medical history of diabetes who presented to the ED complaining of fever, generalized weakness. He reported having diarrhea for 4 days. He was having 4-5 bowel movements per day. He developed fever and became very tired and also weak so he presented to the ED. He was given a lot of IV fluids, found to be febrile. While in the ED he was not making any urine. Laboratory data showed an acute kidney injury so he was admitted for his acute kidney injury, dehydration and diarrhea to rule out C diff. He was empirically started on IV antibiotics for any possible colitis or gastroenteritis. The patient's stool culture as well as blood culture grew out salmonella. Dr. Moses Crystal was brought on board. He also developed pancytopenia. He was changed from Rocephin to Levaquin. Dr. Crystal, given the results of his cultures, notified the [facility] Department. Slowly Mr. Collins has improved. His bowel movements have slowed. His acute kidney injury has resolved. His pancytopenia has slightly improved. He will be discharged home on Levaquin daily for 2 weeks. He will follow up with Dr. Moses Crystal in his office in 3 weeks. VITAL SIGNS ON DISCHARGE: Temperature is 98.1 degrees, heart rate 66, respirations 18, blood pressure 113/60, O2 is 100% on room air. DISCHARGE DIET: Diabetic. DISCHARGE MEDICATIONS PER DR. LING: Levaquin 500 mg p.o. daily for 14 days. FOLLOWUP: Mr. Collins is being discharged home. He will follow up with Dr. Moses Crystal on 10/28/2016 at 9 a.m. He is to take all antibiotics as prescribed. He can return to the ED for any worsening of symptoms. Dictated by KANIKA Sweeney for Anand Ling MD cc: Anand Ling MD [facility]TDD
== END 2016-10-07 13:43 | disposition home or self-care (01) ==
LOC: ED 21:54 → SUATTDRO 10-02 06:06 → 3S 10-02 06:06 → 3N 10-05 15:13
PROVIDERS: ATTEND Internal Medicine